=== PATIENT | male | born 1975 | race Caucasian/White ===

== ENCOUNTER 2018-09-25 03:08 | Emergency (ER) | payer MEDICAID ==
[~2018-09-25] VITALS: Ht 175.3 cm; Wt 95.5 kg
[2018-09-25 03:15] VITALS: BP 151/95
[2018-09-25] MEDS ORDERED: ketorolac tromethamine 15mg/ml inj. IM ONE (03:20)
[2018-09-25] MEDS ORDERED: ketorolac trometh inj. 60 MG/2 ML VIAL IM ONE (03:30)
[2018-09-25] MEDS ORDERED: TRAM50TA2 PO (03:45)
== END 2018-09-25 04:01 | disposition home or self-care (01) ==
LOC: ER 03:08
DX: M25.561 Pain in right knee (principal); M25.461 Effusion, right knee; X50.1XXA Overexertion from prolonged static or awkward postures, initial encounter; Y93.89 Activity, other specified; Y92.89 Other specified places as the place of occurrence of the external cause; Y99.9 Unspecified external cause status
CPT/HCPCS: 73564; 96372; 99283; J1885

== ENCOUNTER 2019-02-10 23:22 | Emergency (ER) | payer MEDICAID ==
[~2019-02-10] VITALS: Ht 175.3 cm; Wt 94.2 kg
[2019-02-11] MEDS ORDERED: HYDR-4383 PO (00:46)
[2019-02-11 00:59] VITALS: BP 155/95
== END 2019-02-11 01:00 | disposition home or self-care (01) ==
LOC: ER 23:23
DX: S39.012A Strain of muscle, fascia and tendon of lower back, initial encounter (principal); Z79.899 Other long term (current) drug therapy; X58.XXXA Exposure to other specified factors, initial encounter; Y93.89 Activity, other specified; Y92.89 Other specified places as the place of occurrence of the external cause; Y99.8 Other external cause status
CPT/HCPCS: 99283

== ENCOUNTER 2019-03-06 02:55 | Emergency (ER) | payer MEDICAID ==
[~2019-03-06] VITALS: Ht 175.3 cm; Wt 95.4 kg
[~2019-03-06 02:55] MED LIST: HYDR-4383 PO
[2019-03-06 02:57] VITALS: BP 129/60
[2019-03-06] MEDS ORDERED: ketorolac trometh inj. 60 MG/2 ML VIAL IM ONE (03:10)
== END 2019-03-06 03:33 | disposition home or self-care (01) ==
LOC: ER 02:56
DX: M76.892 Other specified enthesopathies of left lower limb, excluding foot (principal)
CPT/HCPCS: 96372; 99283; J1885

== ENCOUNTER 2021-02-19 23:29 | Emergency (ER) | payer MEDICAID ==
[~2021-02-19] VITALS: Ht 175.3 cm; Wt 92.2 kg
[2021-02-19 23:47] VITALS: BP 146/99
[2021-02-20] MEDS ORDERED: acetaminophen 325mg tablet PO ONE (02:05)
== END 2021-02-20 02:13 | disposition home or self-care (01) ==
LOC: ER 23:29
DX: G89.29 Other chronic pain (principal); M25.551 Pain in right hip; Z79.899 Other long term (current) drug therapy
CPT/HCPCS: 99282

== ENCOUNTER 2021-08-12 12:28 | Emergency (ER) | payer MEDICAID ==
[~2021-08-12] VITALS: Ht 175.3 cm; Wt 100.0 kg
[2021-08-12 12:44] VITALS: BP 138/93
== END 2021-08-12 16:12 | disposition left against medical advice (07) ==
LOC: ER 12:29
DX: M25.561 Pain in right knee (principal); Z53.21 Procedure and treatment not carried out due to patient leaving prior to being seen by health care provider

== ENCOUNTER 2023-01-11 22:41 | Emergency (ER) | payer MEDICAID ==
[~2023-01-11] VITALS: Ht 175.3 cm; Wt 93.6 kg
[2023-01-12 00:17] VITALS: BP 124/88
[2023-01-12] MEDS ORDERED: TETanus/Pertussis (Acell)/Diphther VAC/PF (Tdap-Adult) 0.5ml syringe IMVAC ONE (01:40)
[2023-01-12] MEDS ORDERED: bacitracin 15gm ointment TP ONE (01:40)
[2023-01-12] MEDS ORDERED: NEOM30OI17 TOP (02:42)
[2023-01-12] MEDS ORDERED: ACET-1025 PO (02:42)
[2023-01-12] MEDS ORDERED: IBUP-1984 PO (02:42)
== END 2023-01-12 03:13 | disposition home or self-care (01) ==
LOC: ER 22:41
DX: S62.292A Other fracture of first metacarpal bone, left hand, initial encounter for closed fracture (principal); S80.212A Abrasion, left knee, initial encounter; Z79.899 Other long term (current) drug therapy; V86.96XA Unspecified occupant of dirt bike or motor/cross bike injured in nontraffic accident, initial encounter; Y93.89 Activity, other specified; Y92.89 Other specified places as the place of occurrence of the external cause; Y99.8 Other external cause status
CPT/HCPCS: 26605; 73120; 73130; 73564; 90471; 90715; 99284